=== PATIENT | female | born 1960 | race Caucasian/White ===

== ENCOUNTER → 2017-10-01 | Day surgery (SDC) | payer OTHER ==
[~2017-10-01] MED LIST: ALLOPURINOL100 MG PO; AMLODIPINE BESY10 MG PO; ATORVASTATIN CA20 MG PO; BENZONATATE100 MG PO; BUMETANIDE1 MG PO; BUPIVACAINE HCL 0.5% INJ 30 ML VIAL INJ ONE; CARVEDILOL12.5 MG PO; CEFAZOLIN SOD 2 GM/D5W 50ML 50 ML IV ONE; CYCLOSPORINE25 MG PO; FENTANYL CITRATE/PF 100MCG/2 ML INJ ONE; HYDROCORTISONE SOD SUCCINATE 100 MG VIAL ONE; ISOSORBIDE MONO30 MG PO; LIDOCAINE HCL 2% LOCAL INJ 5 ML SDV VIAL INJ ONE; MIDAZOLAM HCL 2 MG/2 ML VIAL ONE; MUPIROCIN22 GM TOP; NIZATIDINE150 MG PO; ONDANSETRON HCL INJ 2 MG/ML VIAL ONE; PAROXETINE HCL30 MG PO; PLAVIX75 MG PO; POTASSIUM CHLO20 ME1 PO; PREDNISONE5 MG PO; PREVNAR 13 SYR0.5 ML SC; PROPOFOL IV EMULSION 10 MG/ML 20 ML VIAL ONE; RAPAMUNE1 MG PO; SEVOFLURANE INHAL SOLN 250 ML PEN BTL ONE; SODIUM CHLORIDE 0.9% 500ML 500 ML ONE; TRIAMCINOLONE A15 G1 TOP; ZOLPIDEM TARTRA10 MG PO
--- OUTSIDE RECORDS SUMMARY | 2017-10-01 07:55 | XMS REPORT | Clinical Summary ---
Author Author NATALIA Yuanfen~Flow™[facility] - NampaComedy.comKind[facility] Organization [facility] Address Unknown Phone Unavailable Care Team Providers Care Online Advertising Manager Name Role Phone PCP Unavailable Allergies Active Allergy Reactions Severity Noted Date Comments Lisinopril Anaphylaxis, Swelling High 05/30/2014 Levofloxacin 01/02/2015 GI Upset Current Medications Prescription Sig. Disp. Refills Start End Date Status Date amLODIPine (NORVASC) 10 Take 10 mg by mouth Active MG tablet daily. sulfamethoxazole-trimetho Take 1 tablet by mouth 3 Active prim (BACTRIM DS) 800-160 (three) times daily. mg per tablet Friday, Friday, and friday furosemide (LASIX) 80 MG Take 80 mg by mouth daily Active tablet . isosorbide mononitrate Take 60 mg by mouth Active (IMDUR) 60 MG 24 hr daily. tablet metoprolol (LOPRESSOR) 50 Take 50 mg by mouth 2 Active MG tablet (two) times daily. cycloSPORINE modified Take 50 mg by mouth every Active (NEORAL) 25 MG capsule morning 2 capsules twice a day. nizatidine (AXID) 150 MG Take 150 mg by mouth Active capsule daily. PARoxetine (PAXIL) 30 MG Take 30 mg by mouth every Active tablet morning. potassium chloride SA Take 20 mEq by mouth Active (K-DUR,KLOR-CON) 20 MEQ daily. tablet pravastatin (PRAVACHOL) Take 80 mg by mouth Active 40 MG tablet nightly . predniSONE (DELTASONE) 5 Take 5 mg by mouth daily. Active MG tablet sirolimus (RAPAMUNE) 1 MG Take 1 mg by mouth daily. Active tablet spironolactone Take 25 mg by mouth 2 Active (ALDACTONE) 25 MG tablet (two) times daily. zolpidem (AMBIEN) 10 mg Take 10 mg by mouth every Active tablet night as needed for Insomnia. cycloSPORINE modified Take 25 mg by mouth Active (NEORAL) 25 MG capsule nightly. clopidogrel (PLAVIX) 75 Take 75 mg by mouth Active mg tablet daily. Active Problems Problem Noted Date Acute on chronic kidney failure (HCC) 01/02/2015 Creatinine elevation 01/02/2015 Coronary atherosclerosis of [place] coronary artery 05/31/2014 History of coronary artery stent placement 05/31/2014 Unstable angina (HCC) 05/30/2014 HTN (hypertension) 05/30/2014 History of renal transplant 05/30/2014 Tobacco abuse 05/30/2014 Social History Tobacco Use Types Packs/Day Years Used Date Current Every Day Smoker 0.5 Smokeless Tobacco: Never Used Tobacco Cessation: Ready to Quit: Yes; Counseling Given: Yes Alcohol Use Drinks/Week oz/Week Comments Yes 1 Cans of 0.6 Occasional beer Sex Assigned at Date Recorded Not on file Last Filed Vital Signs Not on file Plan of Treatment Health Maintenance Due Date Last Done Comments INFLUENZA VACCINE 03/09/2018 Implants 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
--- NOTE | 2017-10-02 01:14 | Operative Report ---
DATE OF PROCEDURE: October 01, 2017 PREOPERATIVE DIAGNOSIS: Ganglion cyst, right wrist. POSTOPERATIVE DIAGNOSIS: Ganglion cyst, right wrist. OPERATION/PROCEDURE PERFORMED: Patient underwent removal of a right wrist ganglion cyst. SQL REPORT ANALYST: None. ANESTHESIA: General endotracheal intubation anesthesia. IV FLUIDS: Per the anesthesia record. BRIEF DESCRIPTION OF PATIENT'S OPERATIVE PROCEDURE: Ms. Green was taken to the operating room and placed in the supine position on operating room table. Following induction of general anesthesia as well as endotracheal intubation, patient's right upper extremity was examined under anesthesia. The patient was found to have a very large ganglion cyst at the radiocarpal joint of the right wrist. The patient's upper extremity was prepped and draped in standard surgical fashion. The case was begun by creating an incision directly over the ganglion cyst. This incision was carried through the skin only. Blunt dissection was used to deepen the incision and carefully isolating the wrist. The patient's radial artery and nerve were identified along the radial aspect of the cyst. The cyst was dissected free from the underlying soft tissues and excised in toto. The tendon was also found to encompass a portion of the flexor carpi radialis tendon. The dissection was carried proximally, and the stalk of the cyst was identified and a defect in the radiocarpal joint was also identified. This was closed with suture. The wound was copiously irrigated and then closed in a multilayer fashion. Sterile dressings were applied, and the patient was then awakened and taken to the postanesthesia care unit in stable condition. Job#: [id number]
== END | disposition home or self-care (01) ==
LOC: OR 07:52
PROVIDERS: ATTEND Specialist
DX: M67.431 Ganglion, right wrist (principal); I12.9 Hypertensive chronic kidney disease with stage 1 through stage 4 chronic kidney disease, or unspecified chronic kidney disease; N18.9 Chronic kidney disease, unspecified; I25.10 Atherosclerotic heart disease of native coronary artery without angina pectoris; Z95.5 Presence of coronary angioplasty implant and graft; E78.00 Pure hypercholesterolemia, unspecified; F17.210 Nicotine dependence, cigarettes, uncomplicated; Z94.0 Kidney transplant status; Z95.810 Presence of automatic (implantable) cardiac defibrillator; Z79.02 Long term (current) use of antithrombotics/antiplatelets; Z88.8 Allergy status to other drugs, medicaments and biological substances
CPT/HCPCS: 25111; 88304; J1720; J2001; J2250; J2405; J7040

== ENCOUNTER → 2018-11-18 | Day surgery (SDC) | payer OTHER ==
[2018-11-16 12:14] LABS: BASOPHILS % 0.3 % (0.0-1.0); EOSINOPHILS # (AUTO) 0.2 (0.0-0.4); EOSINOPHILS % 1.9 % (0.0-6.0); HEMATOCRIT 35.5 % (34.2-44.1); HEMOGLOBIN 10.8 g/dL (12.0-16.0); LYMPHOCYTES # (AUTO) 0.9 (1.0-3.2); LYMPHOCYTES % 9.5 % (18.0-39.1); MEAN CORPUSCULAR HEMOGLOBIN 27.1 pg (28-32); MEAN CORPUSCULAR HGB CONC 30.4 g/dL (31-35); MONOCYTES # (AUTO) 0.5 (0.2-0.8); MONOCYTES % 5.5 % (4.4-11.3); NEUTROPHILS # (AUTO) 7.6 (2.1-6.9); NEUTROPHILS % 82.4 % (38.7-80.0); PLATELET COUNT 223 x10e3/uL (140-360); RED BLOOD COUNT 3.99 x10e6/uL (3.6-5.1); RED CELL DISTRIBUTION WIDTH 16.7 % (11.7-14.4)
[2018-11-16 12:31] LABS: ANION GAP 9.9 mmol/L (8-16); CALCIUM 9.5 mg/dL (8.4-10.2); CREATININE, SERUM 1.68 mg/dL (0.57-1.11); POTASSIUM 3.9 mmol/L (3.5-5.1)
--- NOTE | 2018-11-16 13:03 | Diagnostic Imaging Report ---
Chest, 2 views, 11/16/2018. History: Preop, wrist fracture. Comparison: None available. Findings: The cardiomediastinal silhouette and pulmonary vasculature are within normal limits. The lungs are clear without evidence of consolidation or pleural effusion. There are no acute osseous or soft tissue abnormalities. Impression: No acute cardiopulmonary abnormality. Signed by: Hema Whyte on 11/16/2018 1:00 PM
[~2018-11-18] MED LIST changes: +ACETAMINOPHEN 1000 MG/100 ML 100 ML IV ONE; +BACITRACIN 50,000 UNIT VIAL ONE; +CHANTIX1 MG PO; +HYDROMORPHONE 2MG/ML 2 MG/ML ML ONE; +IBUPROFEN400 MG PO; +LABETALOL HCL 20 ML ONE; +NEORAL25 MG PO; +NORVASC5 MG PO; -ONDANSETRON HCL INJ 2 MG/ML VIAL ONE; +ONDANSETRON HCL INJ 2MG/ML 2ML 2 MG/ML VIAL ONE; -SODIUM CHLORIDE 0.9% 500ML 500 ML ONE; +ULTRACET TABLE1 EACH PO
--- OUTSIDE RECORDS SUMMARY | 2018-11-18 09:15 | XMS REPORT | Clinical Summary ---
Author Author NATALIA [facility] CenterPassbeeMedia [facility] Organization [facility] Address Unknown Phone Unavailable Care Team Providers Care Service Person Name Role Phone Sharpless PCP Allergies Comments Active Allergy Reactions Severity Noted Date GI Upset Levofloxacin 01/02/2015 Lisinopril Anaphylaxis, High 05/30/2014 Swelling Medications End Date Status Medication Sig Dispensed Refills Start Date Active amLODIPine (NORVASC) 10 Take 10 mg by 0 MG tablet mouth daily. Active sulfamethoxazole-trimetho Take 1 tablet 0 prim (BACTRIM DS) 800-160 by mouth 3 mg per tablet (three) times daily. Friday, Friday, and friday Active furosemide (LASIX) 80 MG Take 80 mg by 0 tablet mouth daily . Active isosorbide mononitrate Take 60 mg by 0 (IMDUR) 60 MG 24 hr mouth daily. tablet Active metoprolol (LOPRESSOR) 50 Take 50 mg by 0 MG tablet mouth 2 (two) times daily. Active cycloSPORINE modified Take 50 mg by 0 (NEORAL) 25 MG capsule mouth every morning 2 capsules twice a day. Active nizatidine (AXID) 150 MG Take 150 mg 0 capsule by mouth daily. Active PARoxetine (PAXIL) 30 MG Take 30 mg by 0 tablet mouth every morning. Active potassium chloride SA Take 20 mEq 0 (K-DUR,KLOR-CON) 20 MEQ by mouth tablet daily. Active pravastatin (PRAVACHOL) Take 80 mg by 0 40 MG tablet mouth nightly . Active predniSONE (DELTASONE) 5 Take 5 mg by 0 MG tablet mouth daily. Active sirolimus (RAPAMUNE) 1 MG Take 1 mg by 0 tablet mouth daily. Active spironolactone Take 25 mg by 0 (ALDACTONE) 25 MG tablet mouth 2 (two) times daily. Active zolpidem (AMBIEN) 10 mg Take 10 mg by 0 tablet mouth every night as needed for Insomnia. Active cycloSPORINE modified Take 25 mg by 0 (NEORAL) 25 MG capsule mouth nightly. Active clopidogrel (PLAVIX) 75 Take 75 mg by 0 mg tablet mouth daily. Active Problems Problem Noted Date Acute on chronic kidney failure 01/02/2015 Creatinine elevation 01/02/2015 Coronary atherosclerosis of [place] coronary artery 05/31/2014 History of coronary artery stent placement 05/31/2014 Unstable angina 05/30/2014 HTN (hypertension) 05/30/2014 History of renal transplant 05/30/2014 Tobacco abuse 05/30/2014 Social History Date Tobacco Use Types Packs/Day Years Used Current Every Day Smoker 0.5 Smokeless Tobacco: Never Used Tobacco Cessation: Ready to Quit: Yes; Counseling Given: Yes Alcohol Use Drinks/Week oz/Week Comments Yes 1 Cans of 0.6 Occasional beer Sex Assigned at Date Recorded Not on file Industry Job Start Date Occupation Not on file Not on file Not on file Travel End Travel History Travel Start No recent travel history available. 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 er 06/18/2015 [id number] / / [id number] Promus Premier Stent Stents-Cor N/A: [place]ary [place] Implanted: Qty: 1 on 05/31/2014 by Devi Crockett MD 03/04/2016 [id number] / / [id number] Promus Premier [place] Implanted: Qty: 1 on 01/03/2015 [employer] Results Not on fileafter 11/17/2017 Insurance Payer Benefit Subscriber ID Type Phone Address Plan / Group CIGNA - MGD CARE CIGNA xxxxxxxxxxx HMO/POS HMO/POS/OP EN ACCESS Advance Directives For more information, please contact: [address] [address] Date Inactivated Comments Code Status Date Activated 01/04/2015 1:03 PM Full Code 01/03/2015 6:20 PM This code status was determined by: Patient 06/01/2014 4:49 PM Full Code 05/31/2014 8:10 PM This code status was determined by: Patient 05/31/2014 8:10 PM Full Code 05/30/2014 1:28 AM This code status was determined by: Patient
--- OUTSIDE RECORDS SUMMARY | 2018-11-18 09:15 | XMS REPORT ---
Author Author [facility] Address Unknown Phone Unavailable Care Team Providers Care Botanical Technical Officer Name Role Phone IRENE VARGAS Unavailable Unavailable Payers Payer Name Policy Type Policy Number Effective Date Expiration Date Problems This patient has no known problems. Allergies, Adverse Reactions, Alerts Allergy Name Allergy Type Status Severity Reaction(s) Onset Date Inactive Date Treating Clinician Comments lisinopril DA Active SV 2014-05-29 00:00:00 levofloxacin DA Active U 2010-06-03 00:00:00 Medications This patient has no known medications. Results Test Description Test Time Test Comments Text Results Atomic Results Result Comments CHEST 2 VIEWS 2018-11-16 12:59:00 [place] [address] Patient Name: SEN HOWE MR #: [id number] : 1960 Age/Sex: 58/F Req #: [id number] Adm Physician: Ordered by: IRENE VARGAS MD Report #: [id number] Location: OR Room/Bed: Procedure: [id number] DX/CHEST 2 VIEWS Exam Date: Exam Time: REPORT STATUS: Signed Chest, 2 views, 11/16/2018. History: Preop, wrist fracture. Comparison: None available. Findings: The cardiomediastinal silhouette and pulmonary vasculature are within normal limits. The lungs are clear without evidence of consolidation or pleural effusion. There are no acute osseous or soft tissue abnormalities. Impression: No acute cardiopulmonary abnormality. Signed by: Concepcion Whyte on 11/16/2018 1:00 PM Dictated By: CONCEPCION WHYTE MD 1300 Transcribed By: ELIJAH on 11/16/18 1300 COPY TO: IRENE VARGAS MD - XR WRIST 2 VIEWS LT 2018-11-11 20:18:00 FAX: oJse Angel Farfan MD [phone] [place]: [place] St: REG Name: SEN HOWE [facility] FSED : 1960 Age/S: 58/F [address] [facility] Unit #: [id number] Loc: [facility] [address] Phys: Jose Angel Farfan MD [place], [place] [address] Acct: [id number] Dis Date: Status: REG ER PHONE #: Exam Date: 11/11/2018 1945 FAX #: Reason: post reduction EXAMS: CPT CODE: [id number] XR WRIST [address] [place] [id number] REASON FOR EXAM: post reduction EXAM ORDER DATE: 11/11/2018 7:15 PM Ordering Jenn: Jose Angel Farfan MD PROCEDURE: - XR WRIST 2 VIEWS LT FINDINGS: 2 views of the left wrist were obtained. Overlying casting material obscuring visualization of bony details. IMPRESSION: Comminuted distal left radial fracture with dorsal displacement and tilting. Comminuted left distal ulnar fracture at 2018 Reported and signed by: Malcolm Lynn M.D. CC: Jose Angel Farfan MD Technologist: Fatoumata Abadnmmaricruz Date/Time/By: 11/11/2018 (2017) : By: [email or web address] Orig Print D/T: S: 11/11/2018 (2020) PAGE 1 Signed Report BASIC METABOLIC PANEL 2018-11-11 17:51:00 SODIUM (test code=NA) 140 mmol/L 128-145 POTASSIUM (test code=K) 4.2 mmol/L 3.5-5.1 CHLORIDE (test code=CL) 102.0 mmol/L 98-107 CARBON DIOXIDE (test code=CO2) 26.9 mmol/L 22-29 ANION GAP (test code=GAP) 15 mmol/L 10-20 GLUCOSE (test code=GLU) 208 mg/dL 70-110 BLOOD UREA NITROGEN (test code=BUN) 27 mg/dL 7-22 GLOMERULAR FILTRATION RATE (test code=GFR) 26 mL/min >=60 Estimated GFR by using Modified MDRD formula.Chronic kidney disease is defined as either kidney damageor GFR <60 mL/min/1.73 m2 for >3 months. CREATININE (test code=CREAT) 1.98 mg/dL 0.55-1.3 BUN/CREATININE RATIO (test code=BUN/CREA) 13.6 10-20 CALCIUM (test code=CA) 9.9 mg/dL 8.0-10.5 CBC W/O [id number] 17:43:00* Test Item Value Reference Range Comments WHITE BLOOD CELL (test code=WBC) 7.1 K/mm3 4.5-12.5 RED BLOOD CELL (test code=RBC) 4.74 mill/mm3 3.7-5.2 HEMOGLOBIN (test code=HGB) 13.3 gram/dL 11.5-15.5 HEMATOCRIT (test code=HCT) 41.7 % 36.0-46.0 MEAN CELL VOLUME (test code=MCV) 88.0 fL 80-98 MEAN CELL HGB (test code=MCH) 28.1 picogram 27.0-33.0 MEAN CELL HGB CONCETRATION (test code=MCHC) 31.9 gram/dL 33.0-36.0 RED CELL DISTRIBUTION WIDTH (test code=RDW) 16.4 % 11.6-16.2 RED CELL DISTRIBUTION WIDTH SD (test code=RDW-SD) 52.8 fL 37.0-51.0 PLATELET COUNT (test code=PLT) 221 K/mm3 150-450 MEAN PLATELET VOLUME (test code=MPV) 9.3 fL 6.7-11.0 - XR KNEE 3 V [id number] 17:42:00 FAX: Jose Angel Farfan MD [phone] [place]: [place] [address]: REG Name: SEN PHAN [facility] FSED : [birth year] Age/S: 58/F [address] [facility] Unit #: [id number] Loc: [facility] [address] Phys: Jose Angel Farfan MD [place], [place] [address] Acct: [id number] Dis Date: Status: REG ER PHONE #: Exam Date: 11/11/2018 1707 FAX #: Reason: contusion, fall from standing EXAMS: CPT CODE: [id number] XR KNEE [address] [place] [id number] REASON FOR EXAM: contusion, fall from standing EXAM ORDER DATE: 11/11/2018 5: 07 PM Ordering Jenn: Jose Angel Farfan MD PROCEDURE: - XR KNEE 3 V LT FINDINGS: 3 views of the left knee were obtained. The osseous structures are unremarkable in size and shape. The joint spa barb are maintained. No evidence of fracture. No evidence of joint effusi on. The patella is intact IMPRESSION: Focal soft tissue c ontusion in the anterior medial compartment. No acute osseous abnormali ty at 3874 Reported and signed by: Malcolm Lynn M.D. CC: Jose Angel Farfan MD Technologist: Liat Sifuentes Trnscrd Date/Time/By: 11/11/2018 (4372) : By: GabrielL Orig Print D/T: S: 11/11/2018 (6903) PAGE 1 Signed Report - XR FOREARM 2 VIEWS [id number] 17:42:00 FAX: Jose Angel Farfan MD [phone] [place]: [place] [address]: REG Name: SEN PHAN [facility] FSED : [birth year] Age/S: 58/F [address] [facility] [address] Unit #: [id number] Loc: [place] [address] Phys: Jose Angel Farfan MD [place], [place] [address] Acct: [id number] Dis Date: Status: REG ER PHONE #: Exam Date: 11/11/2018 1703 FAX #: Reason: FOREARM PAIN EXAMS: CPT CODE: [id number] XR FOREARM [address] [place] [id number] REASON FOR EXAM: FOREARM PAIN EXAM ORDER DATE: 11/11/2018 5:01 PM Ordering Jenn: Jose Angel Farfan MD PROCEDURE: - XR FOREARM 2 EWS LT FINDINGS: 2 views of the left forearm were obtained. Transv erse dorsally displaced distal left radial fracture seen. Minimally foreshortening of the proximal left greater fragment approximately 1 to 2 cm. IMPRESSION: Transverse dorsally displaced distal left radial fracture at 6968 Reported and signed by: Malcolm Lynn M.D. CC: Jose Angel Farfan MD Technologist: Neil Sifuentes Trnscrd Date/Time/By: 10/2018 (1957) : By: MikeVTL Orig Print D/T: S: 11/11/2018 (3947) PAGE 1 Signed Report - XR WRIST 3 + V [id number] 17:40:00 FAX: Jose Angel Farfan MD [phone] [place]: [place] [address]: REG Name: SEN PHAN [facility] FSED : [birth year] Age/S: 58/F [address] [facility] Unit #: [id number] Loc: [facility] [address] Phys: Jose Angel Farfan MD [place], [place] [address] Acct: [id number] Dis Date: Status: REG ER PHONE #: Exam Date: 11/11/2018 1709 FAX #: Reason: WRIST PAIN EXAMS: CPT CODE: [id number] XR WRIST 3 + [place] LT [id number] REASON FOR EXAM: WRIST PAIN EXAM ORDER DATE: 11/11/2018 5:01 PM Ordering Jenn: Jose Angel Farfan MD PROCEDURE: - XR WRIST 3 + V LT FINDINGS: 3 views of the left wrist were obtained. A transverse, minimally impacted distal left radial fracture with dorsal tilting of the distal fragment approximately 30 degree. Minimally displaced ulnar styloid process fracture is also seen. The joint spaces are maintained. No evidence of carpal bone fracture IMPRESSION: Minimally impacted distal left radial fracture with 30 degrees dorsal tilting of the distal fragment at 1740 Reported and signed by: Malcolm Lynn M.D. CC: Jose Angel Farfan MD Technologist: Neil Cha Trnscrd Date/Time/By: 10/2018 (0797) : By: GabrielL Orig Print D/T: S: 11/11/2018 (2900) PAGE 1 Signed Report
[2018-11-18 14:30] VITALS: BP 117/78
--- NOTE | 2018-11-19 02:54 | Operative Report ---
DATE OF PROCEDURE: 11/18/2018 SURGEON: Cb Guadarrama MD PREOPERATIVE DIAGNOSIS: Comminuted and displaced left distal radius fracture. POSTOPERATIVE DIAGNOSIS: Comminuted and displaced left distal radius fracture. OPERATION/PROCEDURE PERFORMED: The patient underwent attempted closed reduction followed by an open reduction and plate fixation of the comminuted left distal radius fracture. VICE PRESIDENT [place] [employer]ATION: ISRRAEL Lara ANESTHESIA: General endotracheal intubation anesthesia. IV FLUIDS: Per the anesthesia record. BRIEF DESCRIPTION OF THE PATIENT'S OPERATIVE PROCEDURE: Ms. Green was taken to the operating room, placed in a supine position on the operating table. Upon induction of general anesthesia as well as endotracheal intubation, the patient's left upper extremity was examined under anesthesia. She was found to have bruising and ecchymosis involving the left upper extremity. She had several superficial tears of her skin. There were no deep penetrating lacerations in the region of her fracture site. Fluoroscopic evaluation of the wrist joint demonstrated a comminuted and intra-articular distal radius fracture. There was significant dorsal displacement. The patient's upper extremity was prepped and draped in standard surgical fashion. The case was begun by attempting a closed reduction of the distal radius fracture. The wrist was manipulated under anesthesia and attempts were made to realign the distal radius with the shaft. This failed. An incision was therefore created along the dorsal wrist. This incision was directly over the fourth dorsal wrist compartment. The incision was deepened through the subcutaneous tissues. Blunt dissection was used to expose the extensor compartment of the wrist. The fourth compartment was easily identified and the common extensor tendon compartment was opened. The third extensor compartment was also opened and the extensor tendon for the thumb was translated out to third compartment. The fracture site was therefore exposed. There was significant comminution through the fracture site. There was also a large radial styloid fracture fragment. A dorsal plate was chosen. It was affixed to the dorsum of the radius and the plate was adjusted to capture the distal radius fracture fragments. Locking screws were then used to capture the distal radius fracture fragments including the radial styloid fragment. The plate was affixed to the shaft also with locking screws. Fluoroscopic evaluation of the wrist at this time demonstrated realignment of the carpus with the shaft of the radius in acceptable realignment of the patient's articular surface. The wrist was placed through range of motion and found to have excellent range of motion. The fracture fragments were stable through the arc of motion of the wrist. The wound was copiously irrigated. The fourth extensor compartment was loosely reapproximated. The remaining soft tissues were closed in a multilayer fashion. The suture line was also reinforced with absorbable Monocryl suture. Sterile dressings were applied and a sugar-tong splint was applied to the patient's upper extremity. She was awakened and taken to the postanesthesia care unit in stable condition. Viola Melgar acted as assistant infant toddler teacher for this case was necessary for both prepping and draping of the patient as well as retraction of soft tissues to allow this case to be successful. MD GERMAN Bustos/JANAE /[id number]
== END | disposition home or self-care (01) ==
LOC: OR 09:08
PROVIDERS: ATTEND Specialist
DX: S52.552A Other extraarticular fracture of lower end of left radius, initial encounter for closed fracture (principal); S80.01XA Contusion of right knee, initial encounter; M17.11 Unilateral primary osteoarthritis, right knee; I10 Essential (primary) hypertension; I25.2 Old myocardial infarction; I25.10 Atherosclerotic heart disease of native coronary artery without angina pectoris; I44.0 Atrioventricular block, first degree; Z88.8 Allergy status to other drugs, medicaments and biological substances; Z01.810 Encounter for preprocedural cardiovascular examination; Z01.812 Encounter for preprocedural laboratory examination; Z01.818 Encounter for other preprocedural examination; Z79.02 Long term (current) use of antithrombotics/antiplatelets; Z95.5 Presence of coronary angioplasty implant and graft; Z94.0 Kidney transplant status
CPT/HCPCS: 36415; 71046; 80048; 85025; 93005; C1713; J0690; J1720; J2001; J2250; J2405

== ENCOUNTER 2019-01-29 11:57 | Outpatient (RCR) | payer OTHER ==
[~2019-01-29 11:57] MED LIST changes: -ACETAMINOPHEN 1000 MG/100 ML 100 ML IV ONE; -BACITRACIN 50,000 UNIT VIAL ONE; -BUPIVACAINE HCL 0.5% INJ 30 ML VIAL INJ ONE; -CEFAZOLIN SOD 2 GM/D5W 50ML 50 ML IV ONE; +COLLAGENASE OINTMENT 30 GM TUBE ONE; -FENTANYL CITRATE/PF 100MCG/2 ML INJ ONE; -HYDROCORTISONE SOD SUCCINATE 100 MG VIAL ONE; -HYDROMORPHONE 2MG/ML 2 MG/ML ML ONE; -LABETALOL HCL 20 ML ONE; -LIDOCAINE HCL 2% LOCAL INJ 5 ML SDV VIAL INJ ONE; +LIDOCAINE VISC 2% SOLN 15 ML UDC ONE; -MIDAZOLAM HCL 2 MG/2 ML VIAL ONE; -ONDANSETRON HCL INJ 2MG/ML 2ML 2 MG/ML VIAL ONE; -PROPOFOL IV EMULSION 10 MG/ML 20 ML VIAL ONE; -SEVOFLURANE INHAL SOLN 250 ML PEN BTL ONE
[2019-01-29] MEDS ORDERED: LIDOCAINE/PRILOCAINE 2.5-2.5% KIT ONE (18:22)
== END 2019-02-06 ==
LOC: WCC 11:57
PROVIDERS: ATTEND Internal Medicine Infectious Disease
DX: T81.32XA Disruption of internal operation (surgical) wound, not elsewhere classified, initial encounter (principal); T81.31XA Disruption of external operation (surgical) wound, not elsewhere classified, initial encounter; M96.89 Other intraoperative and postprocedural complications and disorders of the musculoskeletal system; I10 Essential (primary) hypertension; I25.10 Atherosclerotic heart disease of native coronary artery without angina pectoris; M17.11 Unilateral primary osteoarthritis, right knee; N18.9 Chronic kidney disease, unspecified; Z94.0 Kidney transplant status; S52.92XA Unspecified fracture of left forearm, initial encounter for closed fracture; W10.0XXA Fall (on)(from) escalator, initial encounter

== ENCOUNTER 2019-02-04 14:59 | Outpatient (RCR) | payer OTHER ==
[~2019-02-04 14:59] MED LIST changes: -COLLAGENASE OINTMENT 30 GM TUBE ONE; -LIDOCAINE VISC 2% SOLN 15 ML UDC ONE
== END 2019-02-06 ==
LOC: OT 14:59
PROVIDERS: ATTEND Specialist
DX: S52.502D Unspecified fracture of the lower end of left radius, subsequent encounter for closed fracture with routine healing (principal); M25.532 Pain in left wrist; M25.632 Stiffness of left wrist, not elsewhere classified

== ENCOUNTER 2019-02-24 14:58 | Outpatient (RCR) | payer OTHER | END 2019-03-08 | LOC: OT 14:58 | PROVIDERS: ATTEND Specialist | DX: S52.502D Unspecified fracture of the lower end of left radius, subsequent encounter for closed fracture with routine healing (principal); M25.532 Pain in left wrist; M25.632 Stiffness of left wrist, not elsewhere classified | CPT/HCPCS: 97139 ==

== ENCOUNTER 2019-03-05 11:23 | Outpatient (RCR) | payer OTHER ==
[2019-03-05] MEDS ORDERED: LIDOCAINE VISC 2% SOLN 15 ML UDC ONE (11:49)
== END 2019-03-08 ==
LOC: WCC 11:23
PROVIDERS: ATTEND Internal Medicine Infectious Disease
DX: T81.32XA Disruption of internal operation (surgical) wound, not elsewhere classified, initial encounter (principal); T81.31XA Disruption of external operation (surgical) wound, not elsewhere classified, initial encounter; M96.89 Other intraoperative and postprocedural complications and disorders of the musculoskeletal system; I10 Essential (primary) hypertension; I25.10 Atherosclerotic heart disease of native coronary artery without angina pectoris; M17.11 Unilateral primary osteoarthritis, right knee; N18.9 Chronic kidney disease, unspecified; S52.92XA Unspecified fracture of left forearm, initial encounter for closed fracture; W10.0XXA Fall (on)(from) escalator, initial encounter; Z94.0 Kidney transplant status

== ENCOUNTER 2019-07-15 16:50 | Inpatient (IN) | payer OTHER ==
[~2019-07-15] VITALS: Ht 167.6 cm; Wt 81.6 kg
[2019-07-15 16:56] LABS: ALANINE AMINOTRANSFERASE 31 IU/L (0-55); ALBUMIN/GLOBULIN RATIO 0.8 (0.8-2.0); ALKALINE PHOSPHATASE 79 IU/L (40-150); ANION GAP 16.5 mmol/L (8-16); BLOOD UREA NITROGEN 19 mg/dL (7-26); BUN/CREATININE RATIO 12 (6-25); CALCIUM 9.3 mg/dL (8.4-10.2); CARBON DIOXIDE 24 mmol/L (22-29); CHLORIDE 97 mmol/L (98-107); EST GLOMERULAR FILTRATION RATE 33 ML/MIN (60-); GLUCOSE 186 mg/dL (74-118); LIPASE 59 U/L (8-78); POTASSIUM 3.5 mmol/L (3.5-5.1); SODIUM 134 mmol/L (136-145)
[2019-07-15 16:57] LABS: INR 0.96
[2019-07-15 16:58] LABS: BASOPHILS % 0.1 % (0.0-1.0); EOSINOPHILS % 0.2 % (0.0-6.0); HEMATOCRIT 33.4 % (34.2-44.1); HEMOGLOBIN 10.6 g/dL (12.0-16.0); LYMPHOCYTES # (AUTO) 1.6 (1.0-3.2); LYMPHOCYTES % 9.4 % (18.0-39.1); MEAN CORPUSCULAR HEMOGLOBIN 28.3 pg (28-32); MEAN CORPUSCULAR HGB CONC 31.7 g/dL (31-35); MEAN CORPUSCULAR VOLUME 89.1 fL (81-99); MONOCYTES # (AUTO) 1.2 (0.2-0.8); MONOCYTES % 6.8 % (4.4-11.3); NEUTROPHILS # (AUTO) 14.2 (2.1-6.9); NEUTROPHILS % 82.5 % (38.7-80.0); PLATELET COUNT 255 x10e3/uL (140-360); RED BLOOD COUNT 3.75 x10e6/uL (3.6-5.1); RED CELL DISTRIBUTION WIDTH 16.8 % (11.7-14.4)
--- NOTE | 2019-07-15 17:08 | NUR ---
see downtime forms for assessments
[2019-07-15] MEDS ORDERED: SODIUM CHLORIDE 0.9% 1000ML 1,000 ML IV STA ×2 (17:59→18:51)
[2019-07-15] MEDS ORDERED: SODIUM CHLORIDE 0.9% 1000ML 1,000 ML ONE (18:06)
[2019-07-15] MEDS ORDERED: METRONIDAZOLE 500MG/NS 100ML 100 ML IV STA (18:44)
[2019-07-15] MEDS ORDERED: PIPER-TAZ 3.375 GM 50 ML IV STA (18:44)
[2019-07-15] MEDS ORDERED: VANCOMYCIN 1GM/NS 250 ML 250 ML IV ONE (18:48)
--- NOTE | 2019-07-15 19:18 | Diagnostic Imaging Report ---
EXAMINATION: CHEST SINGLE (PORTABLE) INDICATION: Shortness of breath ^sob ^[id number] ^1850 COMPARISON: 11/16/2018 FINDINGS: TUBES and LINES: None. LUNGS: Perihilar peribronchial hazy opacity could be due to bronchitis. No consolidative pneumonia. PLEURA: No pleural effusion or pneumothorax. HEART AND MEDIASTINUM: The cardiomediastinal silhouette is unremarkable. BONES AND SOFT TISSUES: No acute osseous lesion. Soft tissues are unremarkable. UPPER ABDOMEN: No free air under the diaphragm. IMPRESSION: Perihilar peribronchial hazy opacity could be due to bronchitis. No consolidative pneumonia. Signed by: Dr. Skinny Barnett M.D. on 07/15/2019 7:15 PM
[2019-07-15 19:39] LABS: CLARITY,URINE SL CLOUDY (CLEAR); COLOR,URINE YELLOW (YELLOW); LEUKOCYTE ESTERASE ,URINE NEGATIVE (NEGATIVE); NITRITE,URINE NEGATIVE (NEGATIVE); PROTEIN,URINE DIPSTICK NEGATIVE (NEGATIVE)
[2019-07-15 19:40] LABS: BILIRUBIN,URINE NEGATIVE (NEGATIVE); KETONES,URINE NEGATIVE (NEGATIVE); URINE UROBILINOGEN 0.2 mg/dL (0.2 - 1)
[2019-07-15 19:51] LABS: EPITHELIAL CELLS,URINE RARE /LPF; RBC,URINE 0-5 /HPF (0-5)
[2019-07-15] MEDS ORDERED: MORPHINE SULFATE INJ 4 MG/ML INJ 1ML IV NR (20:00)
[2019-07-15] MEDS ORDERED: ONDANSETRON HCL INJ 2MG/ML 2ML 2 MG/ML VIAL IV NR ×2 (20:00→21:45)
[2019-07-15] MEDS ORDERED: NIZATIDINE150 MG PO (20:11)
--- NOTE | 2019-07-15 20:41 | Diagnostic Imaging Report ---
EXAM: CT Chest, Abdomen and Pelvis WITHOUT contrast INDICATION: Chest pain. Abdominal pain. Shortness of breath. History of kidney transplant. Abdominal surgery. Hematoma. ^sob ^[id number] ^1999 ^Y COMPARISON: None. TECHNIQUE: Chest, abdomen and pelvis were scanned utilizing a multidetector helical scanner from the lung apex to the pubic symphysis without administration of IV contrast. Absence of intravenous contrast decreases sensitivity for detection of focal lesions and vascular pathology. Coronal and sagittal reformations were obtained. Routine protocol was performed. IV CONTRAST: None ORAL CONTRAST: Water COMPLICATIONS: None RADIATION DOSE: Total DLP: 892 mGy*cm Estimated effective dose: (DLP x 0.015 x size factor) mSv CTDIvol has been reviewed. It is below the limits set by the Radiation Protocol Committee (RPC). Dose modulation, iterative reconstruction, and/or weight based adjustment of the mA/kV was utilized to reduce the radiation dose to as low as reasonably achievable. FINDINGS: LINES and TUBES: Drainage catheter along the anterior right upper abdominal wall with adjacent high density fluid collection consistent with hematoma measuring approximately 7.5 cm in maximal dimension. This extends to the skin surface and abuts the underlying anterior abdominal wall musculature. LUNGS AND AIRWAYS: Scattered opacities in the lungs most pronounced in the left lower lobe worrisome for pneumonia. Airways are normal. PLEURA: The pleural spaces are clear. HEART AND MEDIASTINUM: The thyroid gland is normal. No mediastinal, hilar or axillary lymphadenopathy. The heart is normal in size. Small pericardial effusion. Scattered atherosclerotic calcification coronary arteries, aorta and branch vessels HEPATOBILIARY: No focal hepatic lesions. No biliary ductal dilation. GALLBLADDER: No radio-opaque stones or sludge. No wall thickening. SPLEEN: No splenomegaly. PANCREAS: No focal masses or ductal dilatation. ADRENALS: No adrenal nodules KIDNEYS/URETERS: Atrophy and cystic change of the [place] kidneys and right anterior lower abdominal renal transplant kidney. The transplanted kidney is grossly unremarkable in appearance. GI TRACT: No abnormal distention, wall thickening, or evidence of bowel obstruction. Appendix is normal. PELVIC ORGANS/BLADDER: Unremarkable. LYMPH NODES: No lymphadenopathy. VESSELS: Unremarkable. PERITONEUM / RETROPERITONEUM: No free air or fluid. BONES: Scattered degenerative change. SOFT TISSUES: Mild anasarca IMPRESSION: 1. Drainage catheter along the anterior right upper abdominal wall with adjacent high density fluid collection consistent with hematoma measuring approximately 7.5 cm in maximal dimension. This extends to the skin surface and abuts the underlying anterior abdominal wall musculature. 2. Scattered opacities in the lungs most pronounced in the left lower lobe worrisome for pneumonia. 3. Atrophy and cystic change of the [place] kidneys and right anterior lower abdominal renal transplant kidney. The transplanted kidney is grossly unremarkable in appearance. Signed by: Dr. Skinny Barnett M.D. on 07/15/2019 8:38 PM
[2019-07-15] MEDS ORDERED: AZITHROMYCIN 500MG/NS 250 ML 250 ML IV STA (20:46)
[2019-07-15 20:56] LABS: ABG HCO3 29 mmol/L (23-28); ABG PCO2 32 mmHg (41-51); ABG PH 7.55 (7.31-7.41); ABG PO2 65 mmHg (80-105)
--- NOTE | 2019-07-15 21:06 | Diagnostic Imaging Report ---
Ventilation/perfusion lung scan Clinical Information: 59 F with SOB. Difficulty breathing since surgery for an abdominal hematoma 6 days ago. Comparison: Chest radiograph 07/15/2019 Discussion: Xenon-133 gas 25 mCi was administered via inhalation. Dynamic images of the lungs in the posterior projection were obtained through single breath, equilibrium, and washout phases. Distribution of tracer activity is mildly irregular throughout the lungs. There are no segmental ventilatory defects. Washout of tracer is diffusely delayed with diffuse air trapping. Perfusion images of the lungs were obtained in multiple projections following intravenous administration of approximately 6 mCi of Tc-99m MAA. Distribution of tracer is mildly irregular throughout the lungs. The contours of the lungs are well demarcated. There are no segmental perfusion defects of any size. The cardiomediastinal silhouette is unremarkable. Impression: 1. Scan findings represent a VERY LOW probability for acute pulmonary embolic disease based on the PIOPED II criteria. 2. Scan evidence of obstructive lung disease. Signed by: Dr. Viviana Lloyd M.D. on 07/15/2019 9:03 PM
[2019-07-15] MEDS ORDERED: AZITHROMYCIN 500MG/SOD CHL 0.9% 250ML BAG IV SCH (21:45)
[2019-07-15] MEDS ORDERED: ACETAMINOPHEN 325 MG TAB PO PRN (21:45)
[2019-07-15] MEDS: SODIUM CHLORIDE 0.9% 1000ML 1,000 ML IV SCH (22:12)
[2019-07-15] MEDS: ALBUTEROL SULF 0.083% NEB SOLN 3 ML NEB NEB SCH (23:22)
[2019-07-15] MEDS: CEFEPIME HCL 2 GM/SOD CHL 0.9% 100 ML BAG IV SCH (23:29)
[2019-07-16] VITALS (7 sets, daily range): BP systolic 112–122; BP diastolic 70–75
[2019-07-16] MEDS ORDERED: IPRATROPIUM BROMIDE 0.02% 2.5 ML NEB NEB SCH (01:00)
[2019-07-16] MEDS: ALBUTEROL SULF 0.083% NEB SOLN 3 ML NEB NEB SCH (03:54)
[2019-07-16] MEDS ORDERED: ONDANSETRON HCL INJ 2MG/ML 2ML 2 MG/ML VIAL IV PRN ×2 (04:00→07:15)
[2019-07-16] MEDS ORDERED: MORPHINE SULFATE INJ 4 MG/ML INJ 1ML IV PRN (04:00)
[2019-07-16] MEDS: CEFEPIME HCL 2 GM/SOD CHL 0.9% 100 ML BAG IV SCH (05:48)
[2019-07-16] MEDS: SODIUM CHLORIDE 0.9% 1000ML 1,000 ML IV SCH (05:48)
[2019-07-16 06:29] LABS: BASOPHILS % 0.1 % (0.0-1.0); EOSINOPHILS # (AUTO) 0.1 (0.0-0.4); EOSINOPHILS % 0.4 % (0.0-6.0); HEMATOCRIT 27.2 % (34.2-44.1); HEMOGLOBIN 8.4 g/dL (12.0-16.0); LYMPHOCYTES # (AUTO) 1.4 (1.0-3.2); LYMPHOCYTES % 10.4 % (18.0-39.1); MEAN CORPUSCULAR HEMOGLOBIN 27.9 pg (28-32); MEAN CORPUSCULAR HGB CONC 30.9 g/dL (31-35); MEAN CORPUSCULAR VOLUME 90.4 fL (81-99); MONOCYTES # (AUTO) 1.1 (0.2-0.8); MONOCYTES % 7.8 % (4.4-11.3); NEUTROPHILS # (AUTO) 10.7 (2.1-6.9); NEUTROPHILS % 79.9 % (38.7-80.0); PLATELET COUNT 216 x10e3/uL (140-360); RED BLOOD COUNT 3.01 x10e6/uL (3.6-5.1); RED CELL DISTRIBUTION WIDTH 16.7 % (11.7-14.4)
[2019-07-16 06:48] LABS: ALBUMIN 2.4 g/dL (3.5-5.0); ALBUMIN/GLOBULIN RATIO 0.8 (0.8-2.0); ANION GAP 15.3 mmol/L (8-16); CALCIUM 8.3 mg/dL (8.4-10.2); CREATININE, SERUM 1.44 mg/dL (0.57-1.11); POTASSIUM 3.3 mmol/L (3.5-5.1)
--- NOTE | 2019-07-16 06:57 | Consultation ---
DATE OF CONSULTATION: 07/16/2019 HISTORY OF PRESENT ILLNESS: The patient is a 59-year-old female, known to me. She was recently admitted to another hospital with spontaneous abdominal wall hematoma within the rectus sheath, which has required surgery. She had then developed recurrence of the hematoma after surgery, which has been draining. She was discharged home from that hospital 2 days ago, but returned to the hospital with complaints of shortness of breath. Evaluation has revealed probable pneumonia. The patient has no new complaints referring to the abdominal wall hematoma. No new pain. She has not had any definite fever. PAST MEDICAL HISTORY: Significant for kidney disease with previous renal transplant, history of gout, hypertension, hyperlipidemia. MEDICATIONS: Are listed in the chart. ALLERGIES: SHE HAS ALLERGY TO LISINOPRIL. PAST SURGICAL HISTORY: Surgeries as stated above, as well as previous repair of fractured wrist, previous renal transplant. FAMILY HISTORY: Noncontributory. SOCIAL HISTORY: The patient does not smoke cigarettes or drink alcohol. REVIEW OF SYSTEMS: As stated above. She has had no fever. PHYSICAL EXAMINATION: GENERAL: The patient is awake and alert, in no distress. VITAL SIGNS: Essentially normal. Temperature 99.4. HEENT: Sclerae is not icteric. NECK: No masses. LUNGS: Rhonchi bilaterally. CARDIAC: Regular rate and rhythm. ABDOMEN: Soft. There is a wound in the right upper quadrant with some dark bloody drainage. No signs of active bleeding. There is a drain in place also with dark bloody drainage. There are no signs of peritonitis. No mass. EXTREMITIES: Have no edema. NEUROLOGIC: Grossly intact. LABORATORY TESTS: White blood cell count 17.1 on admission, hemoglobin 10.6, and hematocrit 33.4, these are improved from a few days ago when checked in the hospital. ASSESSMENT: A 59-year-old female, now has findings suggestive of pneumonia. She has been treated with IV antibiotics. The abdominal hematoma is stable with no signs of active bleeding and is currently draining via the existing catheter. There are no findings that will warrant surgical intervention at this time. Recommend continued therapy as has been ordered. Thank you for asking me to see Ms. Green. MD ASCENCION Hess/JANAE /[id number]
[2019-07-16] MEDS ORDERED: ACETAMINOPHEN 325 MG TAB PO PRN (07:15)
[2019-07-16] MEDS ORDERED: ALBUTEROL/IPRATROPIUM 3 ML NEB NEB PRN (07:15)
[2019-07-16] MEDS ORDERED: HYDRALAZINE HCL 20 MG/ML VIAL IV PRN (07:15)
[2019-07-16] MEDS ORDERED: MORPHINE SULFATE 2 MG/ML SYR 1ML IV PRN (07:15)
[2019-07-16] MEDS ORDERED: POTASSIUM CHLORIDE 20 MEQ TAB CR PO STA (07:45)
[2019-07-16] MEDS: FAMOTIDINE 20 MG TAB PO SCH ×2 (07:55→16:44)
[2019-07-16] MEDS ORDERED: FAMOTIDINE 20 MG TAB ONE (07:56)
[2019-07-16] MEDS: ALBUTEROL/IPRATROPIUM 3 ML NEB NEB SCH ×4 (08:10→23:45)
[2019-07-16] MEDS ORDERED: BUMETANIDE 1 MG TAB PO SCH (09:30)
[2019-07-16] MEDS ORDERED: POTASSIUM CHLORIDE 20 MEQ TAB CR PO SCH (09:30)
[2019-07-16] MEDS: GUAIFENESIN 600MG/DEXTROMETHORPHAN 30MG TABSR PO SCH ×2 (09:33→20:52)
[2019-07-16] MEDS: CLOPIDOGREL BISULFATE 75 MG TAB PO SCH (09:33)
[2019-07-16] MEDS: PREDNISONE 5 MG TAB PO SCH (09:33)
[2019-07-16] MEDS: PAROXETINE HCL 20 MG TAB PO SCH (09:33)
[2019-07-16] MEDS: CYCLOSPORINE 25 MG CAP PO SCH ×2 (09:33→16:45)
[2019-07-16] MEDS: AMLODIPINE BESYLATE 10 MG TAB PO SCH (09:34)
[2019-07-16] MEDS: ISOSORBIDE MONONITRATE 30 MG TAB CR PO SCH (09:34)
[2019-07-16] MEDS: CARVEDILOL 12.5 MG TAB PO SCH ×2 (09:34→16:45)
[2019-07-16] MEDS: ALLOPURINOL 300 MG TAB PO SCH (09:34)
[2019-07-16] MEDS: NON-FORMULARY MEDICATION (Sirolimus (Rapamune) 1 MG) PO SCH (12:00)
[2019-07-16] MEDS: LINEZOLID 600 MG/D5W 300ML 300 ML IV SCH ×2 (12:23→23:22)
[2019-07-16] MEDS: CEFEPIME 1GM/NS 0.9% 50 ML 50 ML IV SCH (17:03)
--- NOTE | 2019-07-16 18:36 | Consultation ---
DATE OF CONSULTATION: 07/16/2019 CHIEF COMPLAINT: The patient is concerned about pneumonia and concerned about wound infection. HISTORY OF PRESENT ILLNESS: This patient is a very pleasant 59-year-old female, who has history of renal transplant in 2007. She was in the hospital recently with abdominal wall hematoma, spontaneous under rectus sheath. The patient underwent surgery. Drain was placed. She had hematoma after the surgery. The patient was discharged home two days before she came back to this hospital, complaining of shortness of breath. No fever, no chills, just shortness of breath, and not feeling well. The patient is being admitted and I am asked to see her. The patient was admitted, discussed with the renal, discussed with emergency room, and medical team. She is currently lying in bed. She says she is not feeling well. She says she is feeling short of breath. No fever. No chills. No cough. When she first came, her white count was 17.16 with hemoglobin of 10.6 and the platelets 255. Her sodium 134, potassium 3.5 creatinine 1.6. Today, creatinine was 1.44. Her lactic acid was 0.9. Her lipase was 59. Her blood cultures are still pending. She had a chest CT, which showed she had a drainage catheter along the anterior right upper abdominal wall, adjacent to the high-density fluid collection, consistent with hematoma, measuring about 7.5 cm. Scattered opacities in the lungs, most pronounced in the left lower lobe, worrisome for pneumonia, atrophic cystic changes of the [place] kidneys. When I received the consult, the patient was started on vancomycin and Zosyn. She is currently on morphine, Zofran, Imdur, Coreg, Norvasc, allopurinol, Mucinex, prednisone 5 mg daily, cyclosporine 25 mg twice a day, Plavix 75 mg daily, Bumex. She is currently on cefepime 2 g q.8. REVIEW OF SYSTEMS: At the present time, she is mainly concerned about shortness of breath and cough. No fever, no chills. As mentioned above, she also received a dose of azithromycin and metronidazole and she also was on Zosyn. She received a dose of vancomycin. PHYSICAL EXAMINATION: GENERAL: She is currently alert, oriented, does not seem to be in acute distress. VITALS: Stable, currently afebrile. HEENT: She is not icteric. NECK: Supple. CHEST: Crackles bilateral. COR: S1 and S2. No S3, S4, or murmur. ABDOMEN: Soft, bowel sounds present. No tenderness. EXTREMITIES: No edema. The drain, which has a bloody drainage, but clear. There is no pus. I do not seen drainage from the abdominal wound at the present time. IMPRESSION: 1. Healthcare associated pneumonia in the patient who is status post renal transplant, chronic kidney disease. Agree with cefepime. We will, however, adjust the dose. Discontinue azithromycin. Discontinue metronidazole. Discontinue Zosyn. 2. Intraabdominal hematoma, can we discontinue the Plavix. We will discuss with Renal. 3. Other medical problems as above, seem to be stable. 4. We will follow with you. MD LOUIS Cui/JANAE /[id number]
--- NOTE | 2019-07-16 19:26 | Consultation ---
DATE OF CONSULTATION: 07/16/2019 Pulmonary Critical Care Consultation CHIEF COMPLAINT: Dyspnea and cough. HISTORY OF PRESENT ILLNESS: The patient is a 59-year-old woman. She was recently admitted to [facility] with anemia and a rectus hematoma. She required a surgical evacuation of the hematoma. She was subsequently discharged home. The patient also complains of cough for several months. She has been on nasal sprays as well as some antitussive medications. About two days ago, she started having shortness of breath with exertion. She came to the emergency department. She had a V/Q scan that was negative. A CT scan showed possible pneumonia and lower lobe infiltrates. White blood cell count was also elevated. PAST SURGICAL HISTORY: 1. Recent rectus hematoma evacuation. 2. Status post kidney transplant. 3. Left arm surgery. PAST MEDICAL HISTORY: 1. Hypertension. 2. Chronic cough. 3. Prior kidney transplant. SOCIAL HISTORY: The patient quit smoking two years ago. She is not an active drinker. FAMILY HISTORY: Family history is noncontributory. ALLERGIES: LISINOPRIL. REVIEW OF SYSTEMS: The patient has no headache. She has no neck pain. She is not having any sore throat. She has no chest pain. She does report some dyspnea and some cough. She seems unsure about fevers. She has some abdominal pain. This is related to her prior surgery. She has no nausea or vomiting. She has no focal neurological complaints. PHYSICAL EXAMINATION: VITAL SIGNS: The patient is afebrile. The blood pressure is 112/70, saturation is 91%. HEENT: No facial swelling or erythema. Normal oropharynx. LYMPHATIC: No submandibular, cervical, or supraclavicular adenopathy. CARDIAC: Regular rate and rhythm with normal S1, S2. There are no murmurs or rubs. LUNGS: Auscultation of lungs reveals clear breath sounds bilaterally. There is no wheezing. ABDOMEN: Soft, nontender. There is some tenderness at the prior surgical site. There is no leg edema. RADIOGRAPHIC DATA: Chest x-ray shows some bibasilar infiltrates, more pronounced in the left lower lobe. LABORATORY DATA: White blood cell count is 13.4 and hemoglobin is 8.4. The platelet count is 216. BUN to creatinine ratio is 18 to 1.4. The other electrolytes are within normal limits. IMPRESSION: 1. Healthcare-associated pneumonia with sepsis, present on admission. 2. Anemia secondary to chronic blood loss. 3. Recent evacuation of rectus hematoma. 4. Prior kidney transplant. 5. Chronic cough. PLAN: 1. Continue current antibiotics. 2. Anti-reflux regimen to prevent any acid reflux, which may be contributing to cough. 3. Continue current regimen for prior renal transplant. MD CANDIDO Wan/JANAE /[id number]
[2019-07-16] MEDS: ATORVASTATIN 40 MG TAB PO SCH (20:52)
[2019-07-16] MEDS: TRAMADOL/APAP 37.5MG-325MG TAB PO PRN (21:55)
[2019-07-16] MEDS: ZOLPIDEM TARTRATE 10 MG TAB PO PRN (22:15)
--- NOTE | 2019-07-16 22:47 | Consultation ---
DATE OF CONSULTATION: 07/16/2019 HISTORY OF PRESENT ILLNESS: A 59-year-old female, who was just recently discharged from [facility], has cadaveric renal transplant with chronic rejection, maintained on cyclosporine, Rapamune, and prednisone 5 mg daily. Had developed a rectus hematoma, was drained, complicated by bleeding from the incision site, was transfused. Subsequently, bleeding subsided. Dr. Haynes was following very closely and subsequently was discharged with wound VAC and dressing changes. She developed shortness of breath, unexplained and presented to the hospital, had a V/Q scan done, which was negative. Chest x-ray suggestive of pneumonia. Dr. Lane initially consulted. White count 17.1 with a hemoglobin 10.6. Renal sepulveda, serum creatinine at baseline 1.6, potassium 3.5. She has a prior history of tobacco addiction. She denies any history of COPD, but I suspect she has COPD. Nevertheless, had abdominal CT pelvis done without contrast, which confirms the presence of a drainage catheter along the anterior right upper abdominal wall with a hematoma measuring about 7.[address] in maximum dimension. Dr. Hatfield and Dr. Haynes is on consult. She is allergic to lisinopril. Currently, awake, alert, lying supine, in no apparent distress. SOCIAL HISTORY: Does not smoke or drink. MEDICATIONS: She is currently on potassium chloride daily, which I am going to stop. She is on prednisone 5 mg daily, Ambien p.r.n., Sirolimus 1 mg p.o. daily. She is on paroxetine. Paxil 30 mg p.o. daily, ondansetron p.r.n., morphine p.r.n., cyclosporine 25 mg p.o. b.i.d. She has been started on carvedilol 25 mg p.o. b.i.d., Bumex 2 mg p.o. b.i.d., which I will add it to once a day. Atorvastatin 80 mg at bedtime. She is on amlodipine 10 mg daily, allopurinol 200 mg daily, albuterol Atrovent nebulizer, received one time dose of vancomycin. Currently received a bolus of normal saline in the emergency room. Currently on linezolid 600 mg p.o. b.i.d., cefepime 1 g IV q.12h, azithromycin 500 mg was a one time dose. FAMILY HISTORY: Significant hypertension. PHYSICAL EXAMINATION: GENERAL: Awake, alert, lying supine, in no apparent distress. VITAL SIGNS: With a blood pressure of 112/70, pulse rate 79, and afebrile. HEAD AND NECK: Cornea clear. Oral mucosa moist. Neck veins flat. LUNGS: Rales noted right base more than left. HEART: S1, S2 audible. ABDOMEN: Soft. Dressing noted at the right side of her abdomen with a JOHN drain with darkish-colored bloody fluid. Abdomen, otherwise soft and nontender. EXTREMITIES: Lower extremity, no edema. IMPRESSION: 1. Respiratory distress, resolved, etiology probably chronic obstructive pulmonary disease exacerbation and underlying pneumonia. Antibiotics per Infectious Disease. Cadaveric renal transplant with chronic rejection. Serum creatinine improved to 1.44, received potassium replacement today. Overall, improved from renal standpoint, but will need Pulmonary followup and antibiotics. ID followup and antibiotics. Dr. Haynes has already seen the patient, dressing changes, JOHN drain, and the hematoma management per him. MD LANCE Carroll/MODL /[id number]
[2019-07-17] VITALS (8 sets, daily range): BP systolic 101–126; BP diastolic 70–81
[2019-07-17] MEDS: ALBUTEROL/IPRATROPIUM 3 ML NEB NEB SCH ×6 (03:30→23:45)
[2019-07-17 05:18] LABS: BASOPHILS % 0.1 % (0.0-1.0); EOSINOPHILS # (AUTO) 0.1 (0.0-0.4); EOSINOPHILS % 0.7 % (0.0-6.0); HEMATOCRIT 27.8 % (34.2-44.1); HEMOGLOBIN 8.4 g/dL (12.0-16.0); LYMPHOCYTES # (AUTO) 1.1 (1.0-3.2); MEAN CORPUSCULAR HEMOGLOBIN 27.5 pg (28-32); MEAN CORPUSCULAR HGB CONC 30.2 g/dL (31-35); MEAN CORPUSCULAR VOLUME 90.8 fL (81-99); MONOCYTES # (AUTO) 0.8 (0.2-0.8); NEUTROPHILS # (AUTO) 9.2 (2.1-6.9); PLATELET COUNT 213 x10e3/uL (140-360); RED BLOOD COUNT 3.06 x10e6/uL (3.6-5.1); RED CELL DISTRIBUTION WIDTH 16.6 % (11.7-14.4)
[2019-07-17 05:59] LABS: ALBUMIN 2.3 g/dL (3.5-5.0); ALBUMIN/GLOBULIN RATIO 0.7 (0.8-2.0); ANION GAP 14.5 mmol/L (8-16); CALCIUM 8.7 mg/dL (8.4-10.2); CREATININE, SERUM 1.79 mg/dL (0.57-1.11); POTASSIUM 3.5 mmol/L (3.5-5.1)
[2019-07-17] MEDS: CEFEPIME 1GM/NS 0.9% 50 ML 50 ML IV SCH (06:00)
[2019-07-17] MEDS: NON-FORMULARY MEDICATION (Sirolimus (Rapamune) 1 MG) PO SCH ×2 (07:52→13:40)
[2019-07-17] MEDS: FAMOTIDINE 20 MG TAB PO SCH ×2 (07:52→16:18)
[2019-07-17] MEDS: CYCLOSPORINE 25 MG CAP PO SCH ×2 (08:00→16:18)
[2019-07-17] MEDS: CARVEDILOL 12.5 MG TAB PO SCH ×2 (08:00→16:18)
[2019-07-17] MEDS: BUMETANIDE 1 MG TAB PO SCH (08:00)
[2019-07-17] MEDS: ISOSORBIDE MONONITRATE 30 MG TAB CR PO SCH (08:00)
[2019-07-17] MEDS: GUAIFENESIN 600MG/DEXTROMETHORPHAN 30MG TABSR PO SCH ×2 (08:01→20:15)
[2019-07-17] MEDS: CLOPIDOGREL BISULFATE 75 MG TAB PO SCH (08:01)
[2019-07-17] MEDS: PAROXETINE HCL 20 MG TAB PO SCH (08:01)
[2019-07-17] MEDS: PREDNISONE 5 MG TAB PO SCH (08:01)
[2019-07-17] MEDS: AMLODIPINE BESYLATE 10 MG TAB PO SCH (08:01)
[2019-07-17] MEDS: ALLOPURINOL 300 MG TAB PO SCH (08:01)
[2019-07-17] MEDS ORDERED: CEFEPIME HCL 1 GM VIAL IV SCH (09:00)
[2019-07-17] MEDS: LINEZOLID 600 MG/D5W 300ML 300 ML IV SCH ×2 (12:30→23:09)
[2019-07-17] MEDS: GUAIFENESIN/CODEINE 10 ML CUP PO PRN ×3 (13:45→22:24)
--- NOTE | 2019-07-17 16:20 | Progress Note ---
DATE: 07/17/2019 SUBJECTIVE: Renal followup. Having some cough and sputum production. Abdominal discomfort settling. Drain in place. PHYSICAL EXAMINATION: GENERAL: Lying in bed, no distress. VITAL SIGNS: Temperature 97.9, pulse , blood pressure 124/79. EXTREMITIES: Trace edema. CHEST: Severe rhonchi at the right base. CARDIAC: Normal heart tones. Rhythm sounds regular. ABDOMEN: With drain. LABORATORY DATA: Hemoglobin is 8.4, K 3.5, creatinine 1.79, close to baseline. Serum CO2 of 23, K is 3.5. ASSESSMENT: 1. Chronic kidney disease, stage 3 to 4. 2. Status post renal transplant. 3. (cadaveric). 4. Chronic immunosuppression with low-dose prednisone/low-dose cyclosporine/sirolimus. 5. Abdominal wall hematoma status post drainage. 6. Underlying pneumonia. PLAN: Continue current immunosuppression. Try to obtain rapamycin levels. We will follow along. MD AMELIA LuqueK/MODL /[id number]
--- NOTE | 2019-07-17 16:40 | Progress Note ---
DATE: 07/17/2019 SUBJECTIVE: The patient has less fever. She does have a recurrent cough. She has dyspnea with exertion. PHYSICAL EXAMINATION: VITAL SIGNS: The blood pressure is 101/71 and saturation is 95%. HEENT: Shows no facial swelling or erythema. CARDIAC: Reveals regular rate and rhythm with normal S1 and S2. No murmurs or rubs. LUNGS: Auscultation lungs reveals clear breath sounds bilaterally. There is no wheezing. ABDOMEN: Soft and nontender. There is no rebound or guarding. EXTREMITIES: Shows no leg edema or calf tenderness. LABORATORY DATA: White blood cell count is 11.3 and hemoglobin is 8.4. The platelet count is 213. The BUN to creatinine ratio is 21 to 1.79 and the other electrolytes are within normal limits. IMPRESSION: 1. Healthcare-associated pneumonia with sepsis, present on admission. 2. Anemia secondary to chronic blood loss. 3. Chronic renal insufficiency. 4. Prior kidney transplant. 5. Recent evacuation of rectus hematoma. PLAN: 1. Continue current antibiotics. 2. Continue anti-reflux regimen. 3. Continue current anti-rejection medicines after kidney transplant. 4. Robitussin with codeine as needed. Jb Syed MD [facility]/JANAE /[id number]
[2019-07-17] MEDS: ATORVASTATIN 40 MG TAB PO SCH (20:15)
[2019-07-17] MEDS: ZOLPIDEM TARTRATE 10 MG TAB PO PRN (21:56)
[2019-07-18] VITALS (11 sets, daily range): BP systolic 121–147; BP diastolic 73–80
[2019-07-18] MEDS: GUAIFENESIN/CODEINE 10 ML CUP PO PRN ×3 (04:39→20:26)
[2019-07-18] MEDS: CEFEPIME 1GM/NS 0.9% 50 ML 50 ML IV SCH (05:07)
[2019-07-18 05:23] LABS: BASOPHILS % 0.3 % (0.0-1.0); EOSINOPHILS # (AUTO) 0.1 (0.0-0.4); EOSINOPHILS % 1.4 % (0.0-6.0); HEMATOCRIT 25.4 % (34.2-44.1); HEMOGLOBIN 7.9 g/dL (12.0-16.0); LYMPHOCYTES # (AUTO) 1.2 (1.0-3.2); LYMPHOCYTES % 15.6 % (18.0-39.1); MEAN CORPUSCULAR HEMOGLOBIN 27.8 pg (28-32); MEAN CORPUSCULAR HGB CONC 31.1 g/dL (31-35); MEAN CORPUSCULAR VOLUME 89.4 fL (81-99); MONOCYTES # (AUTO) 0.5 (0.2-0.8); MONOCYTES % 6.4 % (4.4-11.3); NEUTROPHILS # (AUTO) 5.9 (2.1-6.9); NEUTROPHILS % 75.4 % (38.7-80.0); PLATELET COUNT 219 x10e3/uL (140-360); RED BLOOD COUNT 2.84 x10e6/uL (3.6-5.1); RED CELL DISTRIBUTION WIDTH 16.3 % (11.7-14.4)
[2019-07-18 05:48] LABS: ANION GAP 15.4 mmol/L (8-16); CALCIUM 8.8 mg/dL (8.4-10.2); CREATININE, SERUM 1.66 mg/dL (0.57-1.11); POTASSIUM 3.4 mmol/L (3.5-5.1)
[2019-07-18] MEDS: ALBUTEROL/IPRATROPIUM 3 ML NEB NEB SCH ×4 (07:11→19:25)
[2019-07-18] MEDS: FAMOTIDINE 20 MG TAB PO SCH ×2 (07:53→17:55)
[2019-07-18] MEDS: CARVEDILOL 12.5 MG TAB PO SCH ×2 (07:53→17:55)
[2019-07-18] MEDS: CYCLOSPORINE 25 MG CAP PO SCH ×2 (07:54→18:04)
[2019-07-18] MEDS: GUAIFENESIN 600MG/DEXTROMETHORPHAN 30MG TABSR PO SCH ×2 (07:54→20:26)
[2019-07-18] MEDS: BUMETANIDE 1 MG TAB PO SCH (07:54)
[2019-07-18] MEDS: ISOSORBIDE MONONITRATE 30 MG TAB CR PO SCH (07:54)
[2019-07-18] MEDS: PAROXETINE HCL 20 MG TAB PO SCH (07:55)
[2019-07-18] MEDS: PREDNISONE 5 MG TAB PO SCH (07:55)
[2019-07-18] MEDS: CLOPIDOGREL BISULFATE 75 MG TAB PO SCH (07:55)
[2019-07-18] MEDS: ALLOPURINOL 300 MG TAB PO SCH (07:55)
[2019-07-18] MEDS: AMLODIPINE BESYLATE 10 MG TAB PO SCH (07:55)
--- NOTE | 2019-07-18 11:08 | Progress Note ---
DATE: 07/18/2019 SUBJECTIVE: The patient feels better. She has less cough and less dyspnea. She is asking to go home. PHYSICAL EXAMINATION: VITAL SIGNS: The patient is afebrile. The vital signs are stable. HEENT: Shows no facial swelling or erythema. CARDIAC: Reveals a regular rate and rhythm with normal S1 and S2. There are no murmurs or rubs heard. LUNGS: Auscultation of lungs reveals clear breath sounds bilaterally. 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 IMPRESSION: 1. Healthcare associated pneumonia. 2. Anemia secondary to chronic blood loss. 3. Chronic renal insufficiency. 4. Prior renal transplant. 5. Evacuation of prior rectus hematoma. PLAN: 1. Continue current antibiotics. Possible discharge home tomorrow. 2. Continue anti-reflux medications. 3. Continue current anti-rejection regimen. Jb Syed MD [facility]/AURELIAL /[id number]
[2019-07-18] MEDS: LINEZOLID 600 MG/D5W 300ML 300 ML IV SCH (11:38)
[2019-07-18] MEDS: NON-FORMULARY MEDICATION (Sirolimus (Rapamune) 1 MG) PO SCH (14:00)
[2019-07-18] MEDS: ATORVASTATIN 40 MG TAB PO SCH (20:26)
[2019-07-18] MEDS: ZOLPIDEM TARTRATE 10 MG TAB PO PRN (20:26)
[2019-07-18] MEDS: TRAMADOL/APAP 37.5MG-325MG TAB PO PRN (21:23)
[2019-07-19] MEDS: GUAIFENESIN/CODEINE 10 ML CUP PO PRN ×2 (00:12→03:53)
[2019-07-19] MEDS: LINEZOLID 600 MG/D5W 300ML 300 ML IV SCH ×2 (00:12→12:06)
[2019-07-19 00:27] VITALS: BP 134/85
[2019-07-19] MEDS ORDERED: BENZONATATE 100 MG CAP PO PRN (01:45)
[2019-07-19] MEDS: ALBUTEROL/IPRATROPIUM 3 ML NEB NEB SCH ×5 (03:45→14:10)
[2019-07-19] MEDS: CEFEPIME 1GM/NS 0.9% 50 ML 50 ML IV SCH (03:53)
[2019-07-19 04:18] VITALS: BP 126/90
[2019-07-19] MEDS: TRAMADOL/APAP 37.5MG-325MG TAB PO PRN (05:26)
[2019-07-19] MEDS ORDERED: TESSALON PERLE100 MG PO (05:34)
[2019-07-19 05:44] LABS: BASOPHILS % 0.1 % (0.0-1.0); EOSINOPHILS # (AUTO) 0.1 (0.0-0.4); EOSINOPHILS % 1.8 % (0.0-6.0); HEMATOCRIT 25.6 % (34.2-44.1); HEMOGLOBIN 7.9 g/dL (12.0-16.0); LYMPHOCYTES # (AUTO) 1.3 (1.0-3.2); LYMPHOCYTES % 17.6 % (18.0-39.1); MEAN CORPUSCULAR HEMOGLOBIN 27.5 pg (28-32); MEAN CORPUSCULAR HGB CONC 30.9 g/dL (31-35); MEAN CORPUSCULAR VOLUME 89.2 fL (81-99); MONOCYTES # (AUTO) 0.7 (0.2-0.8); NEUTROPHILS # (AUTO) 5.1 (2.1-6.9); NEUTROPHILS % 70.1 % (38.7-80.0); PLATELET COUNT 263 x10e3/uL (140-360); RED BLOOD COUNT 2.87 x10e6/uL (3.6-5.1); RED CELL DISTRIBUTION WIDTH 16.1 % (11.7-14.4)
[2019-07-19 06:12] LABS: ANION GAP 14.3 mmol/L (8-16); CALCIUM 8.7 mg/dL (8.4-10.2); CREATININE, SERUM 1.67 mg/dL (0.57-1.11); MAGNESIUM 1.8 MG/DL (1.3-2.1); POTASSIUM 3.3 mmol/L (3.5-5.1)
[2019-07-19 06:24] LABS: FERRITIN 116.65 ng/mL (4.63-204.00)
[2019-07-19 08:44] VITALS: BP 147/86
[2019-07-19 08:45] VITALS: BP 147/86
[2019-07-19] MEDS: ISOSORBIDE MONONITRATE 30 MG TAB CR PO SCH (08:51)
[2019-07-19] MEDS: FAMOTIDINE 20 MG TAB PO SCH (08:51)
[2019-07-19] MEDS: CYCLOSPORINE 25 MG CAP PO SCH (08:52)
[2019-07-19] MEDS: AMLODIPINE BESYLATE 10 MG TAB PO SCH (08:53)
[2019-07-19] MEDS: GUAIFENESIN 600MG/DEXTROMETHORPHAN 30MG TABSR PO SCH (08:53)
[2019-07-19] MEDS: CLOPIDOGREL BISULFATE 75 MG TAB PO SCH (08:53)
[2019-07-19] MEDS: PAROXETINE HCL 20 MG TAB PO SCH (08:53)
[2019-07-19] MEDS: ALLOPURINOL 300 MG TAB PO SCH (08:54)
[2019-07-19] MEDS: PREDNISONE 5 MG TAB PO SCH (08:54)
[2019-07-19] MEDS: CARVEDILOL 12.5 MG TAB PO SCH (08:56)
[2019-07-19] MEDS: BUMETANIDE 1 MG TAB PO SCH (08:56)
[2019-07-19] MEDS ORDERED: POTASSIUM CHLORIDE 20 MEQ TAB CR PO NR (10:30)
--- NOTE | 2019-07-19 10:47 | Progress Note ---
DATE: 07/19/2019 SUBJECTIVE: The patient feels better. She has less coughing. She has less dyspnea. She is eager to go home. PHYSICAL EXAMINATION: VITAL SIGNS: The patient is afebrile. The vital signs are stable. CARDIAC: Reveals regular rate and rhythm with normal S1, S2. LUNGS: Auscultation of lungs reveals clear breath sounds bilaterally. There is no wheezing. ABDOMEN: Soft, nontender. There is no rebound or guarding. EXTREMITIES: Show no leg edema or calf tenderness. There is no cyanosis or clubbing. SKIN: Shows no rashes. NEUROLOGIC: Shows no focal abnormalities. IMPRESSION: 1. Healthcare associated pneumonia. 2. Chronic renal insufficiency. 3. Prior renal transplant. 4. Evacuation of prior rectus hematoma. PLAN: 1. Complete antibiotics. 2. Discharge home today. 3. Continue anti-rejection medications. MD CANDIDO Wan/JANAE /[id number]
--- NOTE | 2019-07-19 12:14 | NUR ---
[facility] VIKTORIYA MALLOY [phone] CALLED AND IS AVAILIBLE FOR DISCHARGE PLANNING ASSISTANCE UPON DISCHARGE
[2019-07-19 12:17] VITALS: BP 115/77
--- NOTE | 2019-07-19 12:35 | NUR ---
COLLEEN SPOKE WITH [phone] SHE STATES IF PT NEEDS ROSIN [facility]REL [facility]ILL[facility] IV ABX EMILY IS IN NETWORK
--- NOTE | 2019-07-19 12:45 | NUR ---
Called Luna Virk [employer], made aware Dr. Hatfield's [place] wrote antibiotic prescriptions for Doxycycline, 100mg PO Q12hrs, and Cipro 500mg PO 1 tab QID. I asked Luna if patient going with JOHN drain and follow up as outpatient in Dr. Martin Haynes's office. Received orders to discharge patient, and follow up with Dr. Haynes office in 1 week also to call this week to make appointment.
[2019-07-19] MEDS ORDERED: NON-FORMULARY MEDICATION (Sirolimus (Rapamune) 1 MG) PO SCH (14:00)
--- NOTE | 2019-07-19 16:11 | NUR ---
Patient discharged home verbalized understanding of d/c instructions. Escorted in wheel chair to front of hospital to meet her ride.
--- NOTE | 2019-07-20 16:16 | Discharge Summary ---
ADMISSION DIAGNOSES: 1. Hospital-acquired pneumonia, present on admission. 2. Right upper quadrant abdominal hematoma. 3. Chronic kidney disease 3. 4. Hypertension with chronic kidney disease 3. 5. Hyperlipidemia. 6. Gout. 7. Renal transplant. 8. Insomnia. DISCHARGE DIAGNOSES: 1. Hospital-acquired pneumonia, present on admission. 2. Right upper quadrant abdominal hematoma. 3. Chronic kidney disease 3. 4. Hypertension with chronic kidney disease 3. 5. Hyperlipidemia. 6. Gout. 7. Renal transplant. 8. Insomnia. HISTORY: CKD 3, hypertension, hyperlipidemia, gout, insomnia, CAD with PCI, anxiety. SURGICAL HISTORY: Left arm surgery, right wrist surgery, kidney transplant in 2007. FAMILY HISTORY: Noncontributory. SOCIAL HISTORY: The patient quit smoking tobacco two years ago. HOSPITAL COURSE: A 59-year-old female admits with complaints of cough and shortness of breath with dyspnea on exertion that began 2 days ago. The cough started dry, but has become productive. She denies fever and sick contacts. She was recently at [facility] for a rectus sheath hematoma drainage and was supposed to follow up with Dr. Haynes in just a few days. On admission V/Q scan was negative for PE. Chest x-ray showed perihilar peribronchial hazy opacity, likely due to bronchitis. CT of the abdomen and pelvis showed drainage catheter along the anterior right upper abdominal wall with adjacent high-density fluid collection consistent with hematoma measuring approximately 7.5 cm in maximal dimension. Scattered opacities in the lung, most pronounced in the left lower lobe worrisome for pneumonia. Due to the renal transplant and immunocompromise patient, ID and Nephrology were both consulted. The patient was started on Zithromax, cefepime, nebs, Mucinex. After couple of days of IV antibiotics, the patient is feeling much better. She was discharged home with new prescriptions for doxycycline, Cipro, and Tessalon Perles. The patient understands discharge instructions and agrees to plan. Vital signs stable, the patient is afebrile. Dictated by Luna Virk NP MD ARIANA Goodman/MODL /[id number]
== END 2019-07-19 16:15 | disposition home or self-care (01) | DRG 871 ==
LOC: ER 16:50 → ERHOLD 21:44 → IMCU 07-16 08:16
PROVIDERS: ADMIT Internal Medicine; ATTEND Internal Medicine
DX: A41.9 Sepsis, unspecified organism (principal); J18.9 Pneumonia, unspecified organism; Z94.0 Kidney transplant status; J44.1 Chronic obstructive pulmonary disease with (acute) exacerbation; N17.9 Acute kidney failure, unspecified; N18.3 Chronic kidney disease, stage 3 (moderate); D50.0 Iron deficiency anemia secondary to blood loss (chronic); Z87.891 Personal history of nicotine dependence; I12.9 Hypertensive chronic kidney disease with stage 1 through stage 4 chronic kidney disease, or unspecified chronic kidney disease; E78.5 Hyperlipidemia, unspecified; R05 Cough; R06.03 Acute respiratory distress; E66.9 Obesity, unspecified; Z68.29 Body mass index [BMI] 29.0-29.9, adult; Z88.8 Allergy status to other drugs, medicaments and biological substances; S30.1XXA Contusion of abdominal wall, initial encounter; M10.9 Gout, unspecified; G47.00 Insomnia, unspecified
CPT/HCPCS: 36415; 36600; 71045; 71250; 74176; 78582; 80048; 80053; 80195; 81001; 82607; 82728; 82746; 82805; 83036; 83540; 83605; 83690; 83735; 83880; 84443; 84466; 84702; 85025; 85610; 85730; 87040; 94640; 99285; J0456; J0692; J2020; J2270; J2405; J2543; J3370; J7030; J7512; J7515

== ENCOUNTER → 2019-09-09 | Day surgery (SDC) | payer OTHER ==
--- NOTE | 2019-09-08 14:41 | Diagnostic Imaging Report ---
EXAM: CHEST 2 VIEWS DATE: 09/08/2019 12:00 AM INDICATION: Preoperative evaluation COMPARISON: CT and chest radiograph from 07/15/2019 FINDINGS: The trachea is midline. The lungs are symmetrically expanded without evidence for large focal consolidation, pneumothorax, or significant pleural effusion. The cardiomediastinal silhouette is stable in appearance. No acute osseous abnormality is identified. The surrounding soft tissues are unremarkable. IMPRESSION: No acute cardiopulmonary process identified. Signed by: Dr. Isaias Quispe MD on 09/08/2019 2:38 PM
[2019-09-08 15:18] LABS: BASOPHILS % 0.4 % (0.0-1.0); EOSINOPHILS # (AUTO) 0.1 (0.0-0.4); EOSINOPHILS % 0.8 % (0.0-6.0); HEMATOCRIT 40.5 % (34.2-44.1); HEMOGLOBIN 12.5 g/dL (12.0-16.0); LYMPHOCYTES # (AUTO) 0.9 (1.0-3.2); LYMPHOCYTES % 12.2 % (18.0-39.1); MEAN CORPUSCULAR HEMOGLOBIN 27.7 pg (28-32); MEAN CORPUSCULAR HGB CONC 30.9 g/dL (31-35); MEAN CORPUSCULAR VOLUME 89.8 fL (81-99); MONOCYTES # (AUTO) 0.3 (0.2-0.8); MONOCYTES % 3.6 % (4.4-11.3); NEUTROPHILS % 81.6 % (38.7-80.0); PLATELET COUNT 231 x10e3/uL (140-360); RED BLOOD COUNT 4.51 x10e6/uL (3.6-5.1); RED CELL DISTRIBUTION WIDTH 16.7 % (11.7-14.4)
[2019-09-08 15:29] LABS: INR 0.87; PARTIAL THROMBOPLASTIN TIME 24.4 seconds (23.8-35.5); PROTHROMBIN TIME 12.3 seconds (11.9-14.5)
[2019-09-08 15:37] LABS: ANION GAP 16.6 mmol/L (8-16); CALCIUM 9.4 mg/dL (8.4-10.2); CREATININE, SERUM 2.17 mg/dL (0.57-1.11); POTASSIUM 3.6 mmol/L (3.5-5.1)
[2019-09-08 19:12] LABS: EOSINOPHILS % (MANUAL) 2 % (0-7); LYMPHOCYTES % (MANUAL) 12 % (19-48); MONOCYTES % (MANUAL) 4 % (3.4-9.0); NEUTROPHILS % (MANUAL) 81 % (40-74); PLATELET ESTIMATE ADEQUATE; PLATELET MORPHOLOGY COMMENT NORMAL; RBC MORPHOLOGY COMMENT NORMAL
[~2019-09-09] MED LIST changes: +ACETAMINOPHEN/CODEINE 300MG - 30MG TAB ONE; +ASPIR 8181 MG PO; +BUPIVACAINE HCL 0.5% INJ 30 ML VIAL INJ ONE; +CEFAZOLIN SOD 1 GM/NS 50ML 100 ML IV ONE; +CRESTOR10 MG PO; +DEXAMETHASONE SOD PHOS INJ 4 MG/ML VIAL ONE; +FENTANYL CITRATE/PF 100MCG/2 ML INJ ONE; +INSULIN REGULAR, HUMAN 100 UNIT/1 ML 3ML VIAL ONE; +LIDOCAINE HCL 2% LOCAL INJ 5 ML SDV VIAL INJ ONE; +MIDAZOLAM HCL 2 MG/2 ML VIAL ONE; +ONDANSETRON HCL INJ 2MG/ML 2ML 2 MG/ML VIAL ONE; +PROPOFOL IV EMULSION 10 MG/ML 20 ML VIAL ONE; +SEVOFLURANE INHAL SOLN 250 ML PEN BTL ONE; +TESSALON PERLE100 MG PO
--- NOTE | 2019-09-09 12:37 | Operative Report ---
DATE OF PROCEDURE: 09/09/2019 SURGEON: Carl Haynes MD PREOPERATIVE DIAGNOSIS: Infected open abdominal wound. POSTOPERATIVE DIAGNOSIS: Infected open abdominal wound with abdominal wall fascial defect. PROCEDURE: Excisional debridement of infected abdominal wall wound with closure of fascial defect and secondary closure with advancement flaps. PROGRAM MANAGEMENT INTERN: None. ANESTHESIA: General. INDICATIONS AND FINDINGS: The patient is a 59-year-old female, previous surgery for rectus hematoma, who developed open wound with pain and induration with persistent purulent drainage. At surgery, the patient is found to have chronically infected tissue involving the skin and subcutaneous tissue and also involving the anterior fascia and some muscle, all of which was debrided back to healthy tissue. There was a resultant abdominal wall defect, which required closure and in order to close the skin and subcutaneous tissue, local flaps were necessary. TECHNIQUE: After adequate general anesthesia, the patient's supine position, the abdomen was prepped and draped in a sterile fashion with Betadine solution. An elliptical incision made encompassing the open wound extending away from the infected area, carried down through subcutaneous tissue to the fascia. The chronically infected tissue was excised. This included excising some muscle as well as fascia and back to healthy bleeding tissue. Once this was completed, there was a fascial defect, which entered the preperitoneal space, which was about 2 cm in diameter. This was the posterior rectus fascia. Hemostasis was achieved with electrocautery. The wound was irrigated with saline, inspected for hemostasis, which was seen to be adequate and cultures were taken from the wound. The fascial defect was closed transversely with a running suture of #0 Prolene. The anterior fascia could not be closed. The wound was irrigated with saline and infiltrated with 0.5% Marcaine. Skin and subcutaneous tissues were undermined, so wound could be closed without tension. Hemostasis achieved with electrocautery. The subcutaneous tissue was then closed running suture of 2-0 Vicryl and skin was closed with coty. Prior to closure, a 19-[place] Mario drain was placed into the wound through a separate stab wound incision. A sterile dressing was applied. The patient tolerated the procedure well. Estimated blood loss was 20 mL. There were no complications. All counts were correct. The patient was taken to the recovery room in satisfactory condition. MD ASCENCION Hess/JANAE /[id number] cc: UNKNOWN DOCTOR
[2019-09-09 13:40] VITALS: BP 138/91
== END | disposition home or self-care (01) ==
LOC: OR 08:46
PROVIDERS: ATTEND Surgery
DX: T81.30XA Disruption of wound, unspecified, initial encounter (principal); I25.10 Atherosclerotic heart disease of native coronary artery without angina pectoris; I10 Essential (primary) hypertension; E11.9 Type 2 diabetes mellitus without complications; Y83.8 Other surgical procedures as the cause of abnormal reaction of the patient, or of later complication, without mention of misadventure at the time of the procedure; Z88.8 Allergy status to other drugs, medicaments and biological substances; Z01.810 Encounter for preprocedural cardiovascular examination; Z01.812 Encounter for preprocedural laboratory examination; Z01.818 Encounter for other preprocedural examination; Z79.82 Long term (current) use of aspirin; Z94.0 Kidney transplant status; Z87.891 Personal history of nicotine dependence; Z95.5 Presence of coronary angioplasty implant and graft
CPT/HCPCS: 22999; 36415 ×2; 71046; 80048; 82948; 85025; 85610; 85730; 87071; 87075; 87205; 88302; 93005; J0690; J1100; J2001; J2250; J2405; J2704; J3010; J1817